=== PATIENT | male | born 1970 | race Caucasian/White ===

== ENCOUNTER 2021-03-19 13:20 | Emergency (ER) | payer OTHER, MEDICAID ==
[2021-03-19] MEDS ORDERED: Sodium Chloride 0.9% 10 ML Syringe FLUSH PRN (14:35)
[2021-03-19] MEDS ORDERED: Iopamidol 755 Mg/ML 100 ML Bottle IV ONE (14:56)
--- NOTE | 2021-03-19 15:34 | EDM.PDOC ---
ED HPI GENERAL MEDICAL PROBLEM - General Chief Complaint: Respiratory Problem Stated Complaint: COVID Time Seen by Provider: 03/19/21 13:30 Source of Information: Reports: Patient History Limitations: Reports: No Limitations - History of Present Illness INITIAL COMMENTS - FREE TEXT/NARRATIVE: Patient presented to the ED because of dyspnea. He was diagnosed with Covid yesterday and he received the BAM infusion but he still feels crappy. Labs, Chest CTA were normal except that he has a Covid Pneumonia. - Related Data Allergies Allergy/AdvReac Type Severity Reaction Status Date / Time hydromorphone HCl AdvReac Intermediate Anxiety Verified 03/19/21 15:00 [From Dilaudid] Home Meds: Home Meds Multivitamin [Multi Vitamin Daily] 1 each PO DAILY 07/23/13 [History] valACYclovir [Valtrex] 1,000 mg PO DAILY PRN 05/08/14 [History] Ibuprofen 800 mg PO TID PRN 04/12/15 [History] Naproxen Sodium [Aleve] 440 mg PO DAILY PRN 05/26/18 [History] Past Medical History - Past Health History Medical/Surgical History: Denies Medical/Surgical History - Infectious Disease History Infectious Disease History: Reports: Chicken Pox - Past Surgical History Musculoskeletal Surgical History: Reports: Arthroscopic Knee Social & Family History - Caffeine Use Caffeine Use: Reports: Coffee, Soda ED ROS GENERAL - Review of Systems Review Of Systems: See Below Constitutional: Reports: No Symptoms HEENT: Reports: No Symptoms Respiratory: Reports: Shortness of Breath Cardiovascular: Reports: No Symptoms Endocrine: Reports: No Symptoms GI/Abdominal: Reports: No Symptoms : Reports: No Symptoms Musculoskeletal: Reports: No Symptoms Skin: Reports: No Symptoms Neurological: Reports: No Symptoms ED EXAM, GENERAL - Physical Exam Exam: See Below Exam Limited By: No Limitations General Appearance: Alert, No Apparent Distress Ears: Normal External Exam, Normal Canal Nose: Normal Inspection, Normal Mucosa, No Blood Throat/Mouth: Normal Inspection, Normal Lips, Normal Teeth Head: Atraumatic, Normocephalic Neck: Normal Inspection, Supple, Non-Tender, Full Range of Motion Respiratory/Chest: No Respiratory Distress, No Accessory Muscle Use, Decreased Breath Sounds Cardiovascular: Normal Peripheral Pulses, Regular Rate, Rhythm, No Edema, No Gallop, No JVD, No Murmur GI/Abdominal: Normal Bowel Sounds, Soft, Non-Tender, No Organomegaly, No Distention, No Abnormal Bruit, No Mass Back Exam: Normal Inspection, Full Range of Motion Extremities: Normal Inspection, Normal Range of Motion, Non-Tender, No Pedal Edema, Normal Capillary Refill Neurological: Alert, Oriented, CN II-XII Intact, Normal Cognition, Normal Gait, Normal Reflexes, No Motor/Sensory Deficits Psychiatric: Normal Affect Course - Vital Signs Text/Narrative:: Lab/CXR result was reviewed and discussed with patient Oxygen VNC 2 LPM and his oxygen level did improved 95% RA Last Recorded V/S: Last Vital Signs Temp 36.6 C 03/19/21 13:20 Pulse 65 03/19/21 13:20 Resp 22 H 03/19/21 13:20 BP 112/65 03/19/21 13:20 Pulse Ox 90 L 03/19/21 13:20 - Orders/Labs/Meds Orders: Active Orders 24 hr Category Date Time Status Chest 1V Frontal [CR] Stat Exams 03/19/21 13:39 Taken Sodium Chloride 0.9% [Saline Flush] Med 03/19/21 14:35 Active 10 ml FLUSH ASDIRECTED PRN Saline Lock Insert [OM.PC] Routine Oth 03/19/21 14:35 Ordered Medication Orders Sodium Chloride (Sodium Chloride 0.9% 10 Ml Syringe) 10 ml FLUSH ASDIRECTED PRN PRN Reason: Keep Vein Open Labs: Laboratory Tests 03/19/21 03/19/21 03/19/21 Range/Units 13:50 13:50 13:50 WBC 4.4 (3.2-10.1) x10-3/uL RBC 4.68 (3.90-5.90) x10(6)uL Hgb 13.7 (12.9-17.7) g/dL Hct 40.4 (38.3-50.1) % MCV 86.3 (80.8-98.7) fL MCH 29.3 (27.0-33.3) pg MCHC 34.0 (28.7-35.3) g/dL RDW 13.1 (12.4-15.0) % Plt Count 118 (117-477) x10(3)uL MPV 9.5 (6.7-11.0) fL Neut % (Auto) 71.9 H (40.3-71.8) % Lymph % (Auto) 18.3 (15.8-45.3) % [place] % (Auto) 9.6 (5.5-15.2) % Eos % (Auto) 0.0 L (0.1-6.8) % Baso % (Auto) 0.2 L (0.3-3.8) % Neut # (Auto) 3.2 (1.7-6.9) x10-3/uL Lymph # (Auto) 0.8 (0.5-4.5) x10-3/uL [place] # (Auto) 0.4 (0.0-1.2) x10-3/uL Eos # (Auto) 0.0 (0.0-0.6) x10-3/uL Baso # (Auto) 0.0 (0.0-0.3) x10-3/uL D-Dimer, Quantitative 1.35 H (0.0-0.59) mg/LFEU Sodium 130 L (135-145) mmol/L Potassium 3.7 (3.5-5.3) mmol/L Chloride 94 L (100-110) mmol/L Carbon Dioxide 24 (21-32) mmol/L BUN 11 (7-18) mg/dL Creatinine 1.1 (0.70-1.30) mg/dL Est Cr Clr Drug Dosing TNP Estimated GFR (MDRD) > 60 (>60) BUN/Creatinine Ratio 10.0 (9-20) Glucose 113 (80-116) mg/dL Calcium 7.3 L (8.6-10.2) mg/dL Total Bilirubin 0.6 (0.1-1.3) mg/dL AST 75 H (5-25) IU/L ALT 45 H (12-36) U/L Alkaline Phosphatase 44 L (56-112) IU/L Troponin I (4.0-60.3) pg/mL NT-Pro-B Natriuret Pep (<=125) pg/mL Total Protein 6.7 (6.0-8.0) g/dL Albumin 3.3 L (3.5-5.2) g/dL Globulin 3.4 g/dL Albumin/Globulin Ratio 1.0 03/19/21 Range/Units 13:50 WBC (3.2-10.1) x10-3/uL RBC (3.90-5.90) x10(6)uL Hgb (12.9-17.7) g/dL Hct (38.3-50.1) % MCV (80.8-98.7) fL MCH (27.0-33.3) pg MCHC (28.7-35.3) g/dL RDW (12.4-15.0) % Plt Count (117-477) x10(3)uL MPV (6.7-11.0) fL Neut % (Auto) (40.3-71.8) % Lymph % (Auto) (15.8-45.3) % [place] % (Auto) (5.5-15.2) % Eos % (Auto) (0.1-6.8) % Baso % (Auto) (0.3-3.8) % Neut # (Auto) (1.7-6.9) x10-3/uL Lymph # (Auto) (0.5-4.5) x10-3/uL [place] # (Auto) (0.0-1.2) x10-3/uL Eos # (Auto) (0.0-0.6) x10-3/uL Baso # (Auto) (0.0-0.3) x10-3/uL D-Dimer, Quantitative (0.0-0.59) mg/LFEU Sodium (135-145) mmol/L Potassium (3.5-5.3) mmol/L Chloride (100-110) mmol/L Carbon Dioxide (21-32) mmol/L BUN (7-18) mg/dL Creatinine (0.70-1.30) mg/dL Est Cr Clr Drug Dosing Estimated GFR (MDRD) (>60) BUN/Creatinine Ratio (9-20) Glucose (80-116) mg/dL Calcium (8.6-10.2) mg/dL Total Bilirubin (0.1-1.3) mg/dL AST (5-25) IU/L ALT (12-36) U/L Alkaline Phosphatase (56-112) IU/L Troponin I 12.8 (4.0-60.3) pg/mL NT-Pro-B Natriuret Pep 589 H (<=125) pg/mL Total Protein (6.0-8.0) g/dL Albumin (3.5-5.2) g/dL Globulin g/dL Albumin/Globulin Ratio Meds: Medications Generic Name Dose Route Start Last Admin Trade Name Rod PRN Reason Stop Dose Admin Sodium Chloride 10 ml 03/19/21 14:35 Sodium Chloride 0.9% 10 Ml Syringe FLUSH ASDIRECTED PRN Keep Vein Open Discontinued Medications Generic Name Dose Route Start Last Admin Trade Name Rod PRN Reason Stop Dose Admin Iopamidol 85 ml 03/19/21 14:56 Iopamidol 755 Mg/Ml 100 Ml Bottle IV 03/19/21 14:57 . DIRECTED ONE Departure - Departure Time of Disposition: 16:00 Disposition: Home, Self-Care 01 Condition: Good Clinical Impression: Pneumonia due to COVID-19 virus, COVID-19 virus infection - Discharge Information Instructions: 10 Things You Can Do to Manage Your COVID-19 Symptoms at Home - [facility] (11/23/2020) Referrals: PCP,None [Primary Care Provider] - Additional Instructions: Please read discharge instructions on Covid pneumonia Drink at least 2 liters of water daily 1 tablet each daily of VIT C,D,Zinc Take Ibuprofen 800 mg with tylenol 1000 mg every 8 hours as needed for pain,fever, aches Use your oxygen as instructed Follow up as needed Sepsis Event Note (ED) - Focused Exam Vital Signs: Vital Signs Temp Pulse Resp BP Pulse Ox 03/19/21 13:20 36.6 C 65 22 H 112/65 90 L - My Orders Last 24 Hours: My Active Orders 03/19/21 13:39 Chest 1V Frontal [CR] Stat 03/19/21 14:35 Sodium Chloride 0.9% [Saline Flush] 10 ml FLUSH ASDIRECTED PRN Saline Lock Insert [OM.PC] Routine - Assessment/Plan Last 24 Hours: My Active Orders 03/19/21 13:39 Chest 1V Frontal [CR] Stat 03/19/21 14:35 Sodium Chloride 0.9% [Saline Flush] 10 ml FLUSH ASDIRECTED PRN Saline Lock Insert [OM.PC] Routine
[2021-03-19 20:22] VITALS: BP 112/75; PULSE 63
== END 2021-03-19 16:10 | disposition home or self-care (01) ==
LOC: FB.ED 13:20
DX: U07.1 COVID-19 (principal); J12.82 Pneumonia due to coronavirus disease 2019; Z88.5 Allergy status to narcotic agent
CPT/HCPCS: 36415; 71045; 80053; 83880; 84484; 85025; 85379; 99285-25